=== PATIENT | male | born 1955 | race Caucasian/White ===

== ENCOUNTER 2021-07-24 12:56 | Outpatient (CLI) | payer OTHER, SELFPAY ==
--- NOTE | ~2021-07-24 | PE_ITS ---
EXAMINATION: PET skull to mid thigh DATE: 07/24/2021 16:16 INDICATION: Malignant neoplasm of the esophagus TECHNIQUE: Blood glucose level was 97 mg/dL. 9.30 mCi of 18-fluorodeoxyglucose (18-FDG) was administe red i.v. Low dose computed tomography (CT) images were acquired from the base of the brain to the pro ximal thighs for attenuation correction and anatomic localization. Positron emission tomography (PET) images were acquired in the same distribution beginning 78 minutes after injection. The dose-length product (DLP) was 287.99 mGy-cm. COMPARISON: None FINDINGS: Head/neck: No abnormal FDG uptake is identified. FDG uptake in the oral cavity without suspicious CT correlate is likely physiologic. Chest: There is wall thickening with a focus of FDG uptake in the proximal esophagus with an SUV max of 2.8. There are airspace opacities in the superior segment of the right lower lobe with abnormal FD G uptake. There is a massive hiatal hernia projecting into the right hemithorax which contains the st omach, part of the esophagus, and part of the transverse colon. There are no pathologically enlarged thoracic lymph nodes. There is no pleural effusion or pneumothorax. The heart size is normal. Abdomen/pelvis/proximal thighs: Physiologic FDG activity is present in the bowel and urinary tract. T he liver, spleen, pancreas, gallbladder, and adrenal glands are normal. The kidneys are unremarkable. No pathologically enlarged abdominal or pelvic lymph nodes are identified. There is no free intraper itoneal gas or evidence of bowel obstruction. A moderate volume of colonic stool is present. There is moderate distention of the urinary bladder. There are multiple stones in the bladder which measure u p to 1.3 cm. There appears to be a 1.1 cm stone in the right distal ureter. Musculoskeletal: Thoracolumbar dextroscoliosis is noted. No abnormal FDG uptake is identified. IMPRESSION: 1. Small focus of wall thickening and FDG uptake in the proximal esophagus likely corresponding to kn own malignancy. 2. Airspace opacities of the right lower lobe, likely pneumonia. 3. Massive hiatal hernia extending into the right hemithorax containing the stomach and part of the t ransverse colon. 4. Distended urinary bladder containing multiple stones and possible stone in the right distal ureter . Reviewed, dictated and finalized at location B. IMPRESSION: 1. Small focus of wall thickening and FDG uptake in the proximal esophagus like ly corresponding to known malignancy. 2. Airspace opacities of the right lower lobe, likely pneumonia. 3. Massive hiatal hernia extending into the right hemithorax containing the sto mach and part of the transverse colon. 4. Distended urinary bladder containing multiple stones and possible stone in t he right distal ureter.
[2021-07-24 14:32] LABS: Glucose Point of Care 97 mg/dl (65-105)
== END 2021-07-24 12:57 | disposition home or self-care (01) ==
PROVIDERS: Visit Provider Internal Medicine Hematology & Oncology
DX: C15.5 Malignant neoplasm of lower third of esophagus (principal); R91.8 Other nonspecific abnormal finding of lung field; K44.9 Diaphragmatic hernia without obstruction or gangrene; N21.0 Calculus in bladder
CPT/HCPCS: 78815; A9552